=== PATIENT | male | born 1960 | race Caucasian/White ===

== ENCOUNTER 2016-11-28 13:52 | Emergency (ER) | payer BC ==
[~2016-11-28 13:52] MED LIST: HYZAAR 100/25 T1 TAB PO; NORV5 PO
== END 2016-11-28 15:18 | disposition home or self-care (01) ==
LOC: ER 13:52
PROC: 0HQ0XZZ Repair Scalp Skin, External Approach (ICD-10-PCS; principal; 2016-11-28)
DX: S01.01XA Laceration without foreign body of scalp, initial encounter (principal); S39.92XA Unspecified injury of lower back, initial encounter; I10 Essential (primary) hypertension; Z86.73 Personal history of transient ischemic attack (TIA), and cerebral infarction without residual deficits; Z79.899 Other long term (current) drug therapy; W22.8XXA Striking against or struck by other objects, initial encounter
CPT/HCPCS: 70450; 72100; 90471; 90714; 93005; 99284